=== PATIENT | male | born 1965 | race American Indian/Alaskan Native ===

== ENCOUNTER 2020-09-20 09:54 | Observation (INO) | payer OTHER ==
[2020-09-20] MEDS ORDERED: ASPIRIN EC 325 MG TAB PO ONE (12:04)
[2020-09-20 12:22] LABS: Hematocrit 37.9 % (35.5-45.6); Hemoglobin 13.4 gm/dl (11.8-15.2); Mean Corpuscular HGB Conc 35 % (32-34); Mean Corpuscular Volume 91 fl (84-94); Platelet Count 257 K/mm3 (140-440); Red Blood Count 4.14 M/mm3 (3.65-5.03); Red Cell Distribution Width 14.9 % (13.2-15.2)
[2020-09-20] MEDS: SODIUM CHLORIDE 0.9% 500 ML 500 ML IV SCH ×2 (12:29→13:31)
[2020-09-20 12:34] LABS: BUN/Creatinine Ratio 13; Blood Urea Nitrogen 12 mg/dL (9-20); Calcium 9.4 mg/dL (8.4-10.2); Hemolysis Index 3
[2020-09-20] MEDS ORDERED: CLOPIDOGREL 75 MG TAB ONE ×2 (12:38→14:42)
[2020-09-20 12:40] LABS: INR 0.91 (0.87-1.13)
[2020-09-20 12:41] LABS: Partial Thromboplastin Time 26.1 Sec. (24.2-36.6)
[2020-09-20] MEDS ORDERED: LIDOCAINE (2%) 20 MG/1 ML VIAL 20 ML MDV INFILTRATI ONE (12:46)
[2020-09-20] MEDS ORDERED: HEPARIN/NS 5000 UNIT/500ML 1,000 ML IR ONE (12:46)
[2020-09-20] MEDS ORDERED: VERAPAMIL 5 MG/2 ML INJ ONE (12:46)
[2020-09-20] MEDS ORDERED: SODIUM CHLORIDE 0.9% 500 ML 0 ML ONE (12:47)
[2020-09-20] MEDS: fentaNYL 100 MCG/2 ML INJ ONE ×2 (13:26→14:38)
[2020-09-20] MEDS: MIDAZOLAM 2 MG/2 ML INJ ONE ×2 (13:26→13:43)
[2020-09-20] MEDS: NITROGLYCERIN SYRINGE 3 ML ONE ×2 (13:28→13:50)
[2020-09-20] MEDS: HEPARIN 10,000 UNITS/10 ML VIAL ONE ×4 (13:28→14:29)
[2020-09-20] MEDS ORDERED: NITROGLYCERIN SYRINGE 3 ML ONE ×2 (13:58→14:20)
[2020-09-20] MEDS ORDERED: HEPARIN/NS 5000 UNIT/500ML 500 ML IR ONE (14:26)
[2020-09-20] MEDS ORDERED: ALUM-MAG HYDROXIDE-SIMETHICONE 200-200-20MG/5ML ORAL LIQD 30 ML ONE (14:42)
[2020-09-20] MEDS ORDERED: TIROFIBAN/NS 12,500 MCG/250 ML BAG IV ONE (14:43)
[2020-09-20] MEDS ORDERED: HYDROcodone/ACETAMINOPHEN 5-325 MG TAB PO PRN (14:56)
[2020-09-20] MEDS ORDERED: SODIUM CHLORIDE 0.9% 1000 ML 1,000 ML IV SCH (15:00)
--- NOTE | 2020-09-20 15:02 | Event Note ---
Date: 09/20/20 The patient presented for outpatient cardiac catheterization, completed via the right radial approach. We found severe two-vessel disease of the circumflex and the LAD. Patient underwent successful angioplasty and stenting of the circumflex, followed by a second vessel stenting of the mid LAD. Excellent angiographic result in both vessels with CHERYL-3 flow. He will be admitted on intravenous Aggrastat for 18 hours, and 23 post intervention observation. Continue guideline directed medical therapy including dual oral antiplatelet therapy with aspirin and Plavix.
[2020-09-20] MEDS: TIROFIBAN/NS 12,500 MCG/250 ML BAG IV SCH ×2 (15:15→23:48)
--- NOTE | 2020-09-20 15:15 | Cardiac Catherization Report ---
CARDIAC CATHETERIZATION ON CORONARY ANGIOPLASTY REPORT REASON FOR PROCEDURE: The patient is a 55-year-old man with coronary artery disease, previous coronary stents to the right coronary artery, referred for catheterization and possible PCI for recurrent unstable angina. PROCEDURES: 1. Left heart catheterization. 2. Selective left and right coronary angiography. 3. Angioplasty and coronary stenting of the circumflex artery. 4. Second vessel angioplasty and stenting of the mid left anterior descending artery. 5. Sedation time, start 1326, end 1450. I was present for the entire procedure and supervised the moderate sedation protocol. DESCRIPTION OF PROCEDURE: The patient was prepped and draped in a sterile fashion after informed consent. The right radial cath site was prepped and draped after a negative Nicholas's test. Right radial artery was entered using Seldinger technique followed by placement of a 6-Comoran hydrophilic sheath. Routine radial cocktail was administered via the sheath. Selective left and right coronary angiography was performed using #3.5 left Lazarus, and a #4 right Lazarus. The angiograms were reviewed. The left main coronary artery was free of significant disease. The left anterior descending artery contained a focal, 75-80% stenosis of its mid segment. The circumflex artery contained a long, greater than 99% stenosis of its proximal to mid segment, leading to a medium to large mid obtuse marginal. The right coronary artery was a large dominant vessel, that contained a stent through its mid and distal AV groove segment. The stented segment was widely patent with no significant restenosis. Otherwise, there was moderate diffuse atherosclerosis of the distal right coronary segments including the posterior descending branches. CORONARY ANGIOPLASTY: After review of the angiograms, we commenced coronary angioplasty of the left coronary vessels, statin with the circumflex. We selected a 3.0 XB guiding catheter and advanced to the left coronary ostium. A 0.014 inch Route Salesman 50 guidewire was then introduced, across the lesional segment. This vessel was then predilated using a 3.0 mm balloon catheter. Following pre-dilatation, we then deployed serial, 2.5, 2.75 and 3.0 mm stents, covering the entire, long lesional segment and with the stent selected for the appropriate vessel diameter. Following stenting, there was an excellent angiographic result, CEHRYL 3 flow down the vessel. We then turned our attention to the LAD. The wire was redirected into the LAD, across the lesional segment. After wire placement in the LAD, we were able to deploy serial, 3.5 mm drug-eluting stents done in the primary stenting maneuver. There was an excellent angiographic result at the LAD site. The wires and the catheters were removed, post-intervention angiograms revealed an excellent angiographic result at both sites, CHERYL 3 flow down both the LAD and circumflex. Procedure was well tolerated by the patient and there were no complications. Catheters and the wires were removed and hemostasis achieved using a TR band. The patient was returned to the postprocedure unit in stable condition. CONCLUSION: 1. Multivessel coronary artery disease. 2. Widely patent previous right coronary artery stents. 3. Severe de caroline disease of the circumflex and LAD arteries. 4. Successful angioplasty and stenting of the circumflex with deployment of serial, 2.5, 2.75 and 3.0 mm drug-eluting stents. 5. Successful second vessel angioplasty and stenting of the LAD with deployment of a 3.5 mm drug-eluting stent. [facility]# [id number] SHERYL/YASSINE
[2020-09-20] MEDS: CLOPIDOGREL 75 MG TAB PO SCH (18:16)
[2020-09-20] MEDS: LOSARTAN 50 MG TAB PO SCH (19:23)
[2020-09-20] MEDS ORDERED: NON-FORMULARY EACH (Atorvastatin [Lipitor] 80 MG Tablet) PO SCH (22:00)
[2020-09-21 06:29] LABS: Basophils % (Auto) 0.6 % (0.0-1.8); Eosinophils # (Auto) 0.2 K/mm3 (0.0-0.4); Eosinophils % (Auto) 4.2 % (0.0-4.3); Hematocrit 34.5 % (35.5-45.6); Hemoglobin 11.9 gm/dl (11.8-15.2); Lymphocytes # (Auto) 0.8 K/mm3 (1.2-5.4); Lymphocytes % (Auto) 18.5 % (13.4-35.0); Mean Corpuscular HGB Conc 35 % (32-34); Mean Corpuscular Volume 93 fl (84-94); Monocytes # (Auto) 0.4 K/mm3 (0.0-0.8); Monocytes % (Auto) 8.7 % (0.0-7.3); Platelet Count 219 K/mm3 (140-440); Red Blood Count 3.71 M/mm3 (3.65-5.03); Red Cell Distribution Width 14.7 % (13.2-15.2)
[2020-09-21 06:32] LABS: Creatine Kinase MB 14.8 ng/mL (0.0-4.0)
[2020-09-21 06:36] LABS: BUN/Creatinine Ratio 16; Blood Urea Nitrogen 14 mg/dL (9-20); Calcium 8.4 mg/dL (8.4-10.2); Hemolysis Index 5
--- NOTE | 2020-09-21 09:21 | XRay Report ---
CHEST 1 VIEW INDICATION: post pci. COMPARISON: None FINDINGS: SUPPORT DEVICES: None. HEART: Within normal limits. LUNGS/PLEURA: No acute air space or interstitial disease. ADDITIONAL FINDINGS: None. IMPRESSION: 1. No acute findings. Signer Name: Seymour Echevarria MD Signed: 09/21/2020 9:17 AM Workstation Name: [id number]
[2020-09-21] MEDS: LOSARTAN 50 MG TAB PO SCH (09:25)
[2020-09-21] MEDS ORDERED: carvediloL 3.125 MG TAB PO SCH (10:00)
[2020-09-21] MEDS ORDERED: CLOPIDOGREL 75 MG TAB PO SCH (10:00)
[2020-09-21] MEDS ORDERED: ASPIRIN 81 MG TAB CHEW PO SCH (10:00)
--- NOTE | 2020-09-21 10:29 | Short Stay Summary ---
Short Stay Documentation Date of service: 09/21/20 - History H&P: obtained from office - Allergies and Medications Current Medications: Allergies lisinopril Allergy (Verified 09/20/20 13:03) Swelling Home Medications Medication Instructions Recorded Confirmed Last Taken Type Aspirin [Aspirin BABY CHEW TAB] 81 mg PO DAILY 09/20/20 09/20/20 09/19/20 History 1 tab Atorvastatin [Lipitor Tab] 80 mg PO QHS 09/20/20 09/20/20 09/19/20 History 1 tab Clopidogrel [Plavix] 75 mg PO QDAY 09/20/20 09/20/20 09/20/20 History 1 tab carvediloL [Coreg] 3.125 mg PO DAILY 09/20/20 09/20/20 09/19/20 History 1 tab Active Medications Hydrocodone Bitart/Acetaminophen (Hydrocodone/Acetaminophen 5-325 Mg Tab) 1 each PO Q6H PRN PRN Reason: Pain, Moderate (4-6) Last Admin: 09/21/20 08:32 Dose: 1 each Documented by: Aspirin (Aspirin 81 Mg Tab Chew) 81 mg PO DAILY [facility] Last Admin: 09/21/20 09:25 Dose: 81 mg Documented by: Atorvastatin Calcium (Atorvastatin 40 Mg Tab) 80 mg PO QHS [facility] Last Admin: 09/20/20 23:22 Dose: 80 mg Documented by: Carvedilol (Carvedilol 3.125 Mg Tab) 3.125 mg PO DAILY [facility] Clopidogrel Bisulfate (Clopidogrel 75 Mg Tab) 75 mg PO QDAY [facility] Last Admin: 09/21/20 09:24 Dose: 75 mg Documented by: Clopidogrel Bisulfate (Clopidogrel 75 Mg Tab) 75 mg PO QDAY [facility] Last Admin: 09/20/20 18:16 Dose: Not Given Documented by: Sodium Chloride (Nacl 0.9% 500 Ml) 500 mls @ 50 mls/hr IV DIRECT [facility] Last Admin: 09/20/20 13:31 Dose: 50 mls/hr Documented by: Isosorbide Mononitrate (Isosorbide Mononitrate Er 30 Mg Tab) 30 mg PO QDAY [facility] Last Admin: 09/21/20 09:25 Dose: 30 mg Documented by: Losartan Potassium (Losartan 50 Mg Tab) 50 mg PO QDAY [facility] Last Admin: 09/21/20 09:25 Dose: 50 mg Documented by: - Physical exam General appearance: no acute distress HEENT: PERRLA Lungs: Clear to auscultation Heart: Regular rate, Normal S1, Normal S2, No murmurs - Hospital course Hospital course: Stable overnight observation. - Disposition Condition at discharge: Stable Disposition: [id number] TO HOME OR SELFCARE Short Stay Discharge Plan Activity: advance as tolerated Weight Bearing Status: Full Weight Bearing Diet: low fat, low cholesterol, low salt Wound: open to air, keep clean and dry Follow up with: PRIMARY MD RENEE [Primary Care Provider] - 7 Days JULIANNA ESCALANTE MD [Staff Physician] - 7 Days Prescriptions: Losartan [Cozaar] 50 mg PO QDAY #30 tablet ISOSORBIDE MONOnitrate [Imdur ER] 30 mg PO QDAY #30 tablet
[2020-09-21 12:56] VITALS: BP 113/63
[2020-09-21] MEDS: CLOPIDOGREL 75 MG TAB PO SCH (12:59)
== END 2020-09-21 14:48 | disposition home or self-care (01) ==
LOC: CATHLABREC 09:54 → 4A 14:56
PROVIDERS: ADMIT Internal Medicine Cardiovascular Disease; ATTEND Internal Medicine Cardiovascular Disease
DX: I25.10 Atherosclerotic heart disease of native coronary artery without angina pectoris (principal); I73.9 Peripheral vascular disease, unspecified; I25.5 Ischemic cardiomyopathy; I10 Essential (primary) hypertension; E66.9 Obesity, unspecified; E78.5 Hyperlipidemia, unspecified; Z91.14 Patient's other noncompliance with medication regimen; Z98.61 Coronary angioplasty status; Z79.82 Long term (current) use of aspirin; Z79.02 Long term (current) use of antithrombotics/antiplatelets; Z79.899 Other long term (current) drug therapy; Z98.890 Other specified postprocedural states; Z68.36 Body mass index [BMI] 36.0-36.9, adult
CPT/HCPCS: 36415; 71045; 80048; 82550; 82553; 84484; 85014; 85018; 85025; 85027; 85610; 85730; 93005; 93458; 96365; 96366; A9270; C1725; C1769; C1874; C1887; C1894; C9600; C9601; G0378; J1644; J2250; J3010; J3246; J7040; 92928; 92929; Q9967